=== PATIENT | female | born 1955 | race Caucasian/White ===

== ENCOUNTER 2016-09-01 23:08 | Emergency (ER) | payer MEDICAID ==
[~2016-09-01] VITALS: Ht 162.6 cm; Wt 68.9 kg
--- NOTE | 2016-09-01 23:30 | NUR ---
TO BED 1 AMBULATORY C/O HEADACHE, DIZZINESS, ABDOMINAL PAIN WITH N/V S/P EATING MUSHROOM THIS MORNING. PT AAOX4 NO ACUTE DISTRESS NOTED, RESP EVEN AND UNLABORED. PUPILS PERRL, PT ABLE TO MOVE ALL EXTREMITIES WELL WITH BILATERAL EQUAL CLINICAL STUDIES SPECIALIST. PLACE PT ON CARDIAC MONITORING, CONTINUOUS POX. PENDING ER MD SPRINGER.
[2016-09-01] MEDS ORDERED: MECLIZINE HCL 25 MG TABLET ONE (23:48)
[2016-09-01] MEDS ORDERED: ONDANSETRON HCL/PF 4 MG/2 ML VIAL ONE (23:48)
--- NOTE | 2016-09-01 23:55 | NUR ---
RN AT BEDSIDE TO MEDICATE PT.
[2016-09-01 23:58] LABS: BASOPHILS % (AUTO) 0.5 % (0.0-2.0); EOSINOPHILS # (AUTO) 0.2 /CMM (0.0-0.7); EOSINOPHILS % (AUTO) 2.4 % (0.0-6.0); HEMATOCRIT 40 % (33-45); HEMOGLOBIN 13.4 g/dL (11.5-14.8); LYMPHOCYTES # (AUTO) 2.8 /CMM (0.8-4.8); LYMPHOCYTES % (AUTO) 43.7 % (20.0-44.0); MEAN CORPUSCULAR HEMOGLOBIN 30 PG (26.0-33.0); MEAN CORPUSCULAR HGB CONC 34 g/dl (31.0-36.0); MEAN CORPUSCULAR VOLUME 88 fL (82-100); MONOCYTES # (AUTO) 0.5 /CMM (0.1-1.30); NEUTROPHILS # (AUTO) 2.9 /CMM (1.8-8.9); NEUTROPHILS % (AUTO) 45.4 % (43.0-81.0); PLATELET COUNT (AUTO) 291 /CMM (150-450); RDW COEFFICIENT OF VARIATION 12.5 (11.5-15.0); RED BLOOD CELL COUNT(AUTO) 4.47 MIL/uL (4.0-5.2); WHITE BLOOD COUNT (AUTO) 6.4 K/uL (4.3-11.0)
--- NOTE | 2016-09-01 23:58 | NUR ---
PT AMBULATROY TO THE BATHROOM WITH STEADY GAIT NOTED.
[2016-09-02] MEDS ORDERED: ONDANSETRON HCL/PF 4 MG/2 ML VIAL IVP ONE
[2016-09-02] MEDS ORDERED: MECLIZINE HCL 12.5 MG TABLET PO ONE
[2016-09-02] MEDS ORDERED: IV NS 0.9% 1,000 ML BAG IV ONE
--- NOTE | 2016-09-02 | NUR ---
URINE SAMPLE COLLECTED AND SENT TO LAB.
[2016-09-02 00:09] LABS: CALCIUM, SERUM 8.9 mg/dL (8.5-10.1); CARBON DIOXIDE 30 mmol/L (21-32); CHLORIDE 104 mmol/L (98-107); CREATININE 0.5 mg/dL (0.6-1.3); GLUCOSE 114 mg/dL (74-106); POTASSIUM 3.8 mmol/L (3.5-5.1); SODIUM SERUM 141 mmol/L (136-145); UREA NITROGEN, BLOOD 15 mg/dL (7-18)
[2016-09-02 00:11] LABS: INR 0.91 (0.87-1.13); PROTHROMBIN TIME 9.7 SECS (9.5-12.7)
[2016-09-02 00:15] LABS: ALANINE AMINOTRANSFERASE 44 U/L (12-78); ALBUMIN 3.9 g/dL (3.4-5.0); ALKALINE PHOSPHATASE 56 U/L (46-116); ASPARTATE AMINOTRANSFERASE 23 U/L (15-37); BILIRUBIN,TOTAL 0.3 mg/dL (0.2-1.0); TOTAL PROTEIN, SERUM 7.4 g/dL (6.4-8.2)
[2016-09-02 00:21] LABS: TROPONIN I < 0.017 ng/mL (0.00-0.056)
--- NOTE | 2016-09-02 00:30 | NUR ---
PT BACK FROM RADIOLOGY. PENDING CT RESULTS.
[2016-09-02 00:34] LABS: APPEARANCE,URINE CLEAR (CLEAR); BILIRUBIN,URINE NEGATIVE (NEGATIVE); BLOOD, URINE 3+ Ery/uL (NEGATIVE); KETONES,URINE NEGATIVE (NEGATIVE); LEUKOCYTE ESTERASE ,URINE 1+ (NEGATIVE); NITRITE, URINE NEGATIVE (NEGATIVE); PROTEIN,URINE NEGATIVE (NEGATIVE); UGLUCOSE NEGATIVE (NEGATIVE); UROBILINOGEN,URINE 0.2 EU/dL (0.2)
[2016-09-02 00:40] LABS: COLOR,URINE Light yellow (YELLOW)
[2016-09-02 00:46] LABS: BACTERIA,URINE None seen /HPF (None Seen); PREGNANCY TEST URINE QUAL NEGATIVE (NEGATIVE); SQUAMOUS EPITHELIAL CELL,UR Few /HPF (None Seen)
--- NOTE | 2016-09-02 00:55 | NUR ---
PT MEDICATED ORDERED. PT VERBALIZE RELEIF OF N/V.
--- NOTE | 2016-09-02 01:36 | NUR ---
IV removed. Catheter intact and site benign. Pressure and 4x4 applied to site. No bleeding noted. Patient discharged to home in stable condition. Written and verbal after care instructions given. Patient verbalizes understanding of instruction. ambulatory with a steady gait noted. pt aaox4 no acute distress noted, resp even and unlabored. pt daughter at bedside to take pt home.
[2016-09-02 01:38] VITALS: BP 132/76
== END 2016-09-02 01:41 | disposition home or self-care (01) ==
LOC: ER 23:09
DX: H53.2 Diplopia (principal); R42 Dizziness and giddiness; N39.0 Urinary tract infection, site not specified
CPT/HCPCS: 36415; 70450-TC; 71010-TC; 72128-TC; 80048-TC; 80076-TC; 81000-TC; 84484-TC; 84703-TC; 85025-TC; 85652-TC; 85730-TC; 87086-TC; A4606; J2405; J7030; J8597; Z7610